=== PATIENT | female | born 1995 | race African-American/Black ===

== ENCOUNTER 2022-08-30 12:39 | Emergency (ER) | payer OTHER ==
[2022-08-30] MEDS ORDERED: Ondansetron ODT 4 MG TAB ONE (12:59)
[2022-08-30] MEDS ORDERED: Dicyclomine 20 MG/2 ML VIAL ONE (12:59)
== END 2022-08-30 13:35 | disposition home or self-care (01) ==
LOC: BURERS 12:39
DX: A08.4 Viral intestinal infection, unspecified (principal)
CPT/HCPCS: 96372; 99283; Q0162